=== PATIENT | female | born 1960 | race Caucasian/White ===

== ENCOUNTER 2024-06-29 20:38 | Emergency (ER) | payer OTHER ==
[2024-06-29 21:20] LABS: BASOPHILS PERCENT AUTO 0.2 % (0.0-1.0); EOSINOPHILS PERCENT AUTO 0.3 % (0.0-6.0); HEMATOCRIT 41.7 % (37.0-47.0); IMMATURE GRAN ABSOLUTE AUTO 0.05 K/mm3 (0.00-0.05); IMMATURE GRAN PERCENT AUTO 0.5 % (0.0-0.4); LYMPHOCYTES ABSOLUTE AUTO 1.1 K/mm3 (1.0-4.8); LYMPHOCYTES PERCENT AUTO 9.7 % (24.0-44.0); MEAN CORPUSCULAR HEMOGLOBIN 27.9 pg (28.0-32.0); MEAN CORPUSCULAR HGB CONC 33.6 g/dl (32.0-36.0); MEAN CORPUSCULAR VOLUME 83.1 fl (83.0-99.0); MEAN PLATELET VOLUME 8.7 fl (9.4-12.3); MONOCYTES ABSOLUTE AUTO 0.6 K/mm3 (0.0-0.8); MONOCYTES PERCENT AUTO 5.1 % (0.0-8.0); NEUTROPHILS ABSOLUTE AUTO 9.2 K/mm3 (1.8-7.7); NEUTROPHILS PERCENT AUTO 84.2 % (41.0-71.0); PLATELET COUNT,PLT 211 K/mm3 (150-400); RED BLOOD CELL COUNT 5.02 M/mm3 (4.10-5.30); WHITE BLOOD CELL COUNT,WBC 10.92 K/mm3 (3.9-11.3)
[2024-06-29] MEDS: Ondansetron 4 MG/2 ML SDV IVPUSH ONE (21:29)
[2024-06-29] MEDS: fentaNYL 100 MCG/2 ML SDV IVPUSH ONE (21:29)
[2024-06-29 21:38] LABS: A/G RATIO 0.9 (1-2); ALBUMIN 3.6 g/dl (3.4-5.0); ANION GAP 14.7 (5-15); BILIRUBIN TOTAL 0.5 mg/dL (0.2-1.0); C-REACTIVE PROTEIN 0.54 mg/dL (<0.30); CALCIUM 9.3 mg/dL (8.5-10.1); EST CRCL DRUG DOSING (CG) 40.82 mL/min; POTASSIUM,K 3.7 mEq/L (3.5-5.1); PROTEIN TOTAL,TP 7.5 g/dl (6.4-8.2)
[2024-06-29 21:45] LABS: LACTIC ACID 1.5 mmol/L (0.4-2.0)
[2024-06-29] MEDS: Sodium Chloride 0.9% 10 ML Syringe FLUSH ONE (21:55)
[2024-06-29] MEDS: Iopamidol 612 MG/ML 100 ML Bottle IVPUSH ONE (21:55)
[2024-06-29 22:15] LABS: APPEARANCE,URINE CLEAR (Clear); BILIRUBIN,URINE NEGATIVE (Negative); COLOR,URINE LIGHT YELLOW (Yellow); GLUCOSE,URINE NEGATIVE (Negative); KETONES,URINE NEGATIVE (Negative); LEUKOCYTE ESTERASE,URINE NEGATIVE (Negative); NITRITE,URINE NEGATIVE (Negative); OCCULT BLOOD,URINE NEGATIVE (Negative); PH,URINE 6.5 (5.0-8.0); PROTEIN,URINE NEGATIVE (Negative); UROBILINOGEN,URINE 0.2 (0.2-1.0)
[2024-06-29] MEDS: metroNIDAZOLE/Normal Saline 500 MG in Premix Bag 1 BAG IV ONE (22:54)
[2024-06-29] MEDS: Levofloxacin/Dextrose 5%-Water 750 MG in Premix Bag 1 BAG IV ONE (22:54)
[2024-06-29] MEDS: Sodium Chloride 0.9% 1,000 ML IV SCH (23:25)
[2024-06-30] MEDS ORDERED: Naloxone 0.4 MG/ML SDV IVPUSH PRN (00:16)
[2024-06-30] MEDS: HYDROmorphone 0.5 MG/0.5 ML Syringe IVPUSH ONE (00:25)
[2024-06-30] MEDS ORDERED: Sodium Chloride 0.9% 1,000 ML IV SCH (00:30)
[2024-06-30] MEDS ORDERED: Sodium Chloride 0.9% 2,000 ML ONE (03:49)
== END 2024-06-30 01:18 ==
LOC: EDBD 20:38 → JD.ED 20:38
DX: K35.33 Acute appendicitis with perforation, localized peritonitis, and gangrene, with abscess (principal); Z88.0 Allergy status to penicillin; Z88.5 Allergy status to narcotic agent
CPT/HCPCS: 36415; 74177; 80053; 81003; 83605; 83690; 85025; 86140; 87040; 96365; 96366; 96368; 96375; 99285; J1836; J1956; J2405; J3010; J7030; Q9967

== ENCOUNTER 2024-07-20 09:53 | Emergency (ER) | payer OTHER ==
[2024-07-20 10:46] LABS: EOSINOPHILS ABSOLUTE AUTO 0.1 K/mm3 (0.0-0.4); EOSINOPHILS PERCENT AUTO 1.5 % (0.0-6.0); HEMATOCRIT 38.7 % (37.0-47.0); HEMOGLOBIN 12.7 gm/dl (12.0-16.0); IMMATURE GRAN ABSOLUTE AUTO 0.01 K/mm3 (0.00-0.05); IMMATURE GRAN PERCENT AUTO 0.3 % (0.0-0.4); LYMPHOCYTES PERCENT AUTO 26.5 % (24.0-44.0); MEAN CORPUSCULAR HEMOGLOBIN 27.7 pg (28.0-32.0); MEAN CORPUSCULAR HGB CONC 32.8 g/dl (32.0-36.0); MEAN CORPUSCULAR VOLUME 84.3 fl (83.0-99.0); MEAN PLATELET VOLUME 9.9 fl (9.4-12.3); MONOCYTES ABSOLUTE AUTO 0.3 K/mm3 (0.0-0.8); MONOCYTES PERCENT AUTO 6.4 % (0.0-8.0); NEUTROPHILS ABSOLUTE AUTO 2.5 K/mm3 (1.8-7.7); NEUTROPHILS PERCENT AUTO 64.3 % (41.0-71.0); PLATELET COUNT,PLT 227 K/mm3 (150-400); RED BLOOD CELL COUNT 4.59 M/mm3 (4.10-5.30); WHITE BLOOD CELL COUNT,WBC 3.88 K/mm3 (3.9-11.3)
[2024-07-20 11:09] LABS: A/G RATIO 1.1 (1-2); ALANINE AMINOTRANSFERASE,ALT 22 U/L (14-59); ALBUMIN 3.7 g/dl (3.4-5.0); ALKALINE PHOSPHATASE 67 U/L (46-116); ANION GAP 10.5 (5-15); ASPARTATE AMNIOTRANSFERASE,AST 17 U/L (15-37); BILIRUBIN TOTAL 0.4 mg/dL (0.2-1.0); BLOOD UREA NITROGEN,BUN 13 mg/dL (7-18); BUN/CREATININE RATIO 16.3 (14-18); CARBON DIOXIDE,CO2 27 mEq/L (21-32); CHLORIDE,CL 106 mEq/L (98-107); CREATININE 0.8 mg/dL (0.55-1.02); EST CRCL DRUG DOSING (CG) 51.03 mL/min; ESTIMATED GFR 82 mL/min (>60); GLUCOSE RANDOM 94 mg/dL (70-99); POTASSIUM,K 3.5 mEq/L (3.5-5.1); PROTEIN TOTAL,TP 7.1 g/dl (6.4-8.2); SODIUM,NA 140 mEq/L (136-145)
[2024-07-20 11:10] LABS: TROPONIN I HIGH SENSITIVITY < 4 pg/mL (<=51)
[2024-07-20] MEDS ORDERED: Sodium Chloride 0.9% 10 ML Syringe FLUSH ONE (11:30)
[2024-07-20] MEDS ORDERED: Sodium Chloride 0.9% 100 ML IV SCH ×2 (11:30)
[2024-07-20] MEDS: Meclizine 25 MG Tab PO ONE (11:34)
[2024-07-20] MEDS: Iopamidol 755 Mg/ML 100 ML Bottle IVPUSH ONE (11:41)
== END 2024-07-20 12:10 | disposition left against medical advice (07) ==
LOC: JD.ED 09:53
DX: R06.02 Shortness of breath (principal); R42 Dizziness and giddiness; R53.83 Other fatigue; Z88.5 Allergy status to narcotic agent; Z88.0 Allergy status to penicillin; Z53.20 Procedure and treatment not carried out because of patient's decision for unspecified reasons
CPT/HCPCS: 36415; 71046; 71275; 80053; 84484; 85025; 85379; 87428; 93005; 99285; Q9967; 93010; 99284

== ENCOUNTER 2025-01-11 06:00 | Day surgery (SDC) | payer MEDICARE ==
[~2025-01-11 06:00] MED LIST: Sodium Chloride 0.9% 10 ML Syringe FLUSH PRN; Sodium Chloride 0.9% 10 ML Syringe FLUSH SCH
[2025-01-11] MEDS: Lactated Ringers 1,000 ML IV SCH (06:10)
[2025-01-11] MEDS: oxyCODONE ER 10 MG TAB.ER PO ONE (06:27)
[2025-01-11] MEDS ORDERED: propofoL 500 MG/50 ML 50 ML ONE ×2 (06:33→08:09)
[2025-01-11] MEDS ORDERED: Midazolam 1 MG/ML 2 ML SDV ONE (06:33)
[2025-01-11] MEDS ORDERED: Ropivacaine 0.5% 5 MG/ML 30 ML SDV ONE (06:34)
[2025-01-11] MEDS ORDERED: Ondansetron 4 MG/2 ML SDV IVPUSH PRN (06:46)
[2025-01-11] MEDS ORDERED: fentaNYL 100 MCG/2 ML SDV IVPUSH PRN (06:46)
[2025-01-11] MEDS ORDERED: Phenylephrine 1% 10 MG/ML SDV ONE (07:17)
[2025-01-11] MEDS ORDERED: Ondansetron 4 MG/2 ML SDV ONE (07:29)
[2025-01-11] MEDS ORDERED: Ketorolac 30 MG/ML SDV ONE (07:29)
[2025-01-11] MEDS ORDERED: Dexamethasone 4 MG/ML 5 ML MDV ONE (07:29)
[2025-01-11] MEDS ORDERED: dexmedeTOMIDine HCl 200 MCG/2 ML SDV ONE (07:33)
[2025-01-11] MEDS ORDERED: Lactated Ringers 1,000 ML ONE (07:56)
[2025-01-11] MEDS ORDERED: fentaNYL 100 MCG/2 ML SDV ONE (08:44)
[2025-01-11] MEDS: Morphine 8 MG, EPINEPHrine 0.3 MG, Cefuroxime 750 MG, Ketorolac 30 MG, Sodium Chloride ... PRN (09:18)
[2025-01-11] MEDS ORDERED: Propofol 200 MG/20 ML SDV ONE (09:39)
== END 2025-01-11 13:20 | disposition home or self-care (01) ==
LOC: JD.SDS 06:00
PROVIDERS: ATTEND Orthopaedic Surgery
DX: T84.84XA Pain due to internal orthopedic prosthetic devices, implants and grafts, initial encounter (principal); M24.652 Ankylosis, left hip; I10 Essential (primary) hypertension; F41.9 Anxiety disorder, unspecified; Z87.891 Personal history of nicotine dependence; Z96.652 Presence of left artificial knee joint; Z88.0 Allergy status to penicillin; Z88.5 Allergy status to narcotic agent; Z88.8 Allergy status to other drugs, medicaments and biological substances; Z79.899 Other long term (current) drug therapy; Y83.1 Surgical operation with implant of artificial internal device as the cause of abnormal reaction of the patient, or of later complication, without mention of misadventure at the time of the procedure
CPT/HCPCS: 0055T; 27487; 64447; 73560; 97116; 97161; A9270; C1713; C1776; J0169; J0690; J0697; J1100; J1885; J2250; J2272; J2371; J2405; J2704; J2795; J3010; J3373; J7120; 01402